=== PATIENT | male | born 2000 | race Hispanic/Latino ===

== ENCOUNTER 2018-06-20 13:51 | Emergency (ER) | payer OTHER, BC, SELFPAY ==
[2018-06-20 13:55] VITALS: BP 141/70; PULSE 58; RESP 16; TEMP 36.5; BMI 43.2
--- NOTE | 2018-06-20 14:22 | ED.VISSUMM ---
- ER Visit Summary Date of Service: 06/20/18 Chief Complaint: Back pain History of Present Illness: The patient is a 18 M who was at work last night. He was twisting to move a box from the counter to the conveyor and felt a slight pull in his left back. He did not think much of it at the time. Today has increased pain to the left flank area that radiates around his left side. Pain is worse with movement. Physical Examination: Vital signs unremarkable. Patient sitting upright in bed no acute distress. Heart is regular rate and rhythm. Lung sounds are clear. Back examination reveals no midline thoracic or lumbar tenderness. He has reproducible tenderness in the left lumbar paraspinal muscles. Neuro exam is unremarkable. He has good strength and sensation. He has 1+ bilateral patellar reflexes. Test Results: [] Emergency Department Course and Treatment: Patient did take ibuprofen prior to arrival. He will be given prescriptions for naproxen and Flexeril. Work restrictions have been written. He will follow-up with [facility]. Treatment Plan: [] Disposition: Discharge Impression: Left lumbar paraspinal strain with spasm This note was generated with [employer] dictation software. It may contain incorrect words, spelling, and punctuation that were not noted in review of the chart prior to signing ED Disposition - Plan for ED Patient: Disposition: Home or Assisted Living Instructions: ED Sprain Strain Lumbar Prescriptions: Naproxen [Naprosyn] 500 mg PO BID PRN PRN #20 tablet PRN Reason: Pain Cyclobenzaprine [Flexeril] 10 mg PO TID PRN #20 tablet PRN Reason: Muscle Spasm [facility] [GROUP OF PHYSICIANS] - 3-5 Days
== END 2018-06-20 14:50 | disposition home or self-care (01) ==
LOC: ED 14:33
PROVIDERS: Emergency Provider Emergency Medicine
DX: S39.012A Strain of muscle, fascia and tendon of lower back, initial encounter (principal); M62.830 Muscle spasm of back; X50.1XXA Overexertion from prolonged static or awkward postures, initial encounter; Y93.9 Activity, unspecified; Y92.89 Other specified places as the place of occurrence of the external cause; Y99.0 Civilian activity done for income or pay
CPT/HCPCS: 99282